=== PATIENT | female | born 1970 | race Two or more races ===

== ENCOUNTER 2021-10-21 07:35 | Emergency (ER) | payer MEDICAID, OTHER ==
[~2021-10-21] VITALS: Ht 170.2 cm; Wt 74.8 kg
[2021-10-21 07:38] VITALS: BP 141/90
[2021-10-21] MEDS ORDERED: KETOROLAC TROMETH 60MG/2ML VIAL IM ONE (08:30)
[2021-10-21] MEDS ORDERED: METH750T22 PO (09:21)
[2021-10-21] MEDS ORDERED: IBUP800T27 PO (09:21)
== END 2021-10-21 09:35 | disposition home or self-care (01) ==
LOC: ER 07:35
DX: S20.212A Contusion of left front wall of thorax, initial encounter (principal); S00.83XA Contusion of other part of head, initial encounter; I10 Essential (primary) hypertension; Y04.2XXA Assault by strike against or bumped into by another person, initial encounter; Y93.89 Activity, other specified; Y92.89 Other specified places as the place of occurrence of the external cause; Y99.8 Other external cause status
CPT/HCPCS: 71101; 96372; 99283; J1885